=== PATIENT | female | born 1965 | race Caucasian/White ===

== ENCOUNTER → 2016-09-19 | Day surgery (SDC) | payer OTHER ==
[~2016-09-19] VITALS: Ht 171.4 cm; Wt 75.5 kg
[~2016-09-19] MED LIST: 0.9% Sodium Chloride 1,000 ML IV PRN; Sodium Chloride LOK Flush 10 mL Syringe IV PRN; fentaNYL-PF 50 mCg/mL 2 mL Inj IVPUSH PRN
[2016-09-19 12:09] VITALS: BP 110/60; PULSE 76; RESP 16; O2SAT 100
--- NOTE | 2016-09-19 13:19 | PCM.ENDCOL ---
Colonoscopy Date of Service: Sep 19, 2016 Physician Felix Sandoval MD Pre Procedure Diagnosis: Screening and altered bowel habits. Post Procedure Dx & Findings: Polyp hemorrhoids Procedure Colonoscopy PROCEDURE IN DETAIL: Prep adequate Withdrawal time 13 minutes After unremarkable rectal examination the Olympus video colonoscope was inserted patient's anal canal and was advanced to cecum. Landmarks were identified including the ileocecal valve and appendiceal orifice. Scope was withdrawn systematically. Visualized colonic mucosa showed healthy shiny mucosa with normal healthy-appearing vasculature. In the ascending colon there was a 1 mm polyp which was removed completely with cold forceps. In the sigmoid colon there was a 2-3 mm polyp which is removed completely using cold snare. In the rectum retroflexion was done which showed hemorrhoids. Anal canal was inspected carefully on the way out and hemorrhoids noted. Impression Polyp 2 status post complete removal Hemorrhoids Recommendation Repeat colonoscopy 5 years Presedation Assessment Risks and Benefits Informed consent was obtained from the patient after all risks and benefits including but not limited to drug reaction, infection, pain, bleeding, perforation, as well as alternatives were discussed. Patient monitoring Continuous pulse oximetry, cardiac monitoring, blood pressure monitoring, IV access, and oxygen at 2L per nasal cannula. Periprocedural Fentanyl: Fentanyl 75mcg Incrementally Midazolam: Midazolam 4mg Incrementally Complications There were no periprocedural complications identified. Post Procedure Plan Post Procedure Recommendations 1. Restrict activities today. 2. Resume normal activities in the morning. 3. Resume medications. 4. Patient informed of normal post procedure side effects as bloating, drowsiness, blood streaking in the stool. 5. average risk CRCS. If colon polyps come back as: -Hyperplastic- can repeat colonoscopy in 10 years -Tubular adenoma- repeat colonoscopy in 5 years -Tubulovillous/villous adenoma- repeat colonoscopy in 3 years -If any dysplasia- return to clinic as soon as possible 6. Please don't hesitate to call me with any questions. Felix Sandoval MD Sep 19, 2016 13:19
[2016-09-19 13:20] VITALS: BP 104/64; PULSE 67; RESP 15; O2SAT 97
[2016-09-19 13:30] VITALS: BP 101/57; PULSE 64; O2SAT 99
[2016-09-19 13:39] VITALS: BP 103/66; PULSE 83; O2SAT 100
--- NOTE | 2016-09-23 16:03 | PATH ---
SURGICAL PATHOLOGY Attending Physician:Felix Sandoval M.D. CASE STATUS: Signed Out PATIENT NAME: FREDDY FOFANA PID: [id number] : 1965 DATE COLLECTED:09/19/2016 00:00 SPECIMEN: 1: Colon, Polyp 2: Colon, Polyp CLINICAL HISTORY: COLON POLYPS 1). ASCENDING COLON POLYP 2). SIGMOID COLON POLYP FINAL DIAGNOSIS: 1. Ascending Colon Polyp: Benign colonic mucosa with no pathologic alterations, consistent with polypoid redundancy. Negative for dysplasia or malignancy. Multiple microscopic levels examined. 2. Sigmoid Colon Polyp: Sessile serrated adenoma. ICD10: D12.5 GROSS DESCRIPTION: The specimen is received in two formalin filled containers labeled with the patient's name. 1). The specimen is labeled "ascending colon polyp" and consists of a 0.2 x 0.2 x 0.2 CM portion of tissue which is entirely submitted in cassette 1A. 2). The specimen is labeled "sigmoid colon polyp" and consists of a 0.5 x 0.4 x 0.3 CM portion of tissue which is entirely submitted in cassette 2A. 09/20/2016IA ICD-9 CODES: CPT CODES: 1: 11801 2: 92575 Electronically Signed Out Mayra Dasilva MD [facility], [place] [address] Technical component performed at [facility], [place], [facility] [address], [place], [address]
== END | disposition home or self-care (01) ==
LOC: END 00:13
PROVIDERS: ATTEND Internal Medicine
DX: Z12.11 Encounter for screening for malignant neoplasm of colon (principal); D12.5 Benign neoplasm of sigmoid colon; K63.5 Polyp of colon; K64.8 Other hemorrhoids
CPT/HCPCS: 45380; 45385; G0500; J2250; J3010; J7030